=== PATIENT | male | born 1965 | race Caucasian/White ===

== ENCOUNTER 2020-08-21 02:23 | Emergency (ER) | payer SELFPAY ==
[~2020-08-21] VITALS: Ht 172.7 cm; Wt 99.0 kg
[2020-08-21 03:01] VITALS: BP 185/104
[2020-08-21] MEDS ORDERED: ONDANSETRON 4MG ODT PO ONE (03:30)
== END 2020-08-21 03:59 | disposition home or self-care (01) ==
LOC: ER 02:23
DX: F15.10 Other stimulant abuse, uncomplicated (principal); R00.2 Palpitations; F41.9 Anxiety disorder, unspecified; I10 Essential (primary) hypertension; Z88.0 Allergy status to penicillin; Z88.2 Allergy status to sulfonamides
CPT/HCPCS: 93005; 99283; Q0162